=== PATIENT | male | born 1990 | race African-American/Black ===

== ENCOUNTER 2022-11-25 10:47 | Emergency (ER) | payer SELFPAY ==
[~2022-11-25] VITALS: Ht 172.7 cm; Wt 72.6 kg
[2022-11-25 10:47] VITALS: BP 135/79
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
[2022-11-25] MEDS ORDERED: TORADOL ONE (12:36)
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
[2022-11-25] MEDS ORDERED: TORADOL IV STA (12:42)
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
== END 2022-11-25 14:03 | disposition home or self-care (01) ==
LOC: ER 10:47
DX: S62.324A Displaced fracture of shaft of fourth metacarpal bone, right hand, initial encounter for closed fracture (principal); S50.02XA Contusion of left elbow, initial encounter; S00.11XA Contusion of right eyelid and periocular area, initial encounter; S00.03XA Contusion of scalp, initial encounter; F17.210 Nicotine dependence, cigarettes, uncomplicated; M54.6 Pain in thoracic spine; R04.0 Epistaxis; Y04.2XXA Assault by strike against or bumped into by another person, initial encounter; Y93.89 Activity, other specified; Y92.89 Other specified places as the place of occurrence of the external cause; Y99.8 Other external cause status
CPT/HCPCS: 99285; 70486; 96374; 29125; 73070; 70450; 71260; 72125; 74177; 73130; J1885; Q9965